=== PATIENT | male | born 1930 | race Hispanic/Latino ===

== ENCOUNTER 2017-03-22 19:49 | Emergency (ER) | payer MEDICARE, MEDICAID ==
[2017-03-22 19:57] VITALS: BP 158/79; PULSE 93; RESP 16; TEMP 98.5; O2SAT 94
--- NOTE | 2017-03-22 20:31 | ED PDOC ---
Arrival/HPI <Jamarcus Guzman - Last Filed: 03/22/17 20:53> - General Historian: Patient, Other (daughter ) <Nakia Blanchard - Last Filed: 03/23/17 19:25> - General Chief Complaint: Upper Extremity Problem/Injury Time Seen by Provider: 03/22/17 20:18 - History of Present Illness Narrative History of Present Illness (Text): 03/22/17 20:28 Patient is an 86 year old with pmh of OA, right hip replacement, right carpal tunnel syndrome presenting with right elbow ecchymosis and swelling. As per patient's daughter patient had kenalog and lidocaine injections 10 days ago at the wrist. Then yesterday patient noticed the ecchymosis and edema around the elbow. Patient called PMD and was told to come to the emergency department for evaluation. patient denies pain, denies numbness or tingling sensation, denies weakness, denies fever or chills. Patient denies any anticoagulation use. 03/22/17 20:44 (Nakia Blanchard) Past Medical History - Provider Review Nursing Documentation Reviewed: Yes - Travel History Have you recently traveled outside [place] w/in the past 3 mons?: No - Past History Past History: No Previous - Infectious Disease Hx of Infectious Diseases: None - Tetanus Immunization Tetanus Immunization: Unknown - Cardiac Hx Cardiac Disorders: No - Pulmonary Hx Respiratory Disorders: No - Neurological Hx Neurological Disorder: No - HEENT Hx HEENT Disorder: No - Renal Hx Renal Disorder: No - Endocrine/Metabolic Hx Endocrine Disorders: No - Hematological/Oncological Hx Blood Disorders: No - Integumentary Hx Dermatological Disorder: No - Musculoskeletal/Rheumatological Hx Arthritis: Yes Other/Comment: CARPAL TUNNEL - Gastrointestinal Hx Gastrointestinal Disorders: No - Genitourinary/Gynecological Hx Prostate Problems: Yes - Psychiatric Hx Psychophysiologic Disorder: No Hx Substance Use: No - Surgical History Other/Comment: PROSTATE <Nakia Blanchard - Last Filed: 03/23/17 19:25> Family/Social History - Physician Review Nursing Documentation Reviewed: Yes Family/Social History: No Known Family HX Smoking Status: Never Smoked Hx Alcohol Use: Yes Frequency of alcohol use: Socially Hx Substance Use: No <Nakia Blanchard - Last Filed: 03/23/17 19:25> Allergies/Home Meds <Jamarcus Guzman - Last Filed: 03/22/17 20:53> <Nakia Blanchard - Last Filed: 03/23/17 19:25> Allergies/Adverse Reactions: Allergies No Known Allergies Allergy (Verified 03/22/17 19:50) Home Medications: Home Meds Medication Instructions Recorded Confirmed Oxybutynin [Ditropan Tab] 1 tab PO DAILY 03/22/17 03/22/17 Review of Systems - Review of Systems Constitutional: Normal Eyes: Normal ENT: Normal Respiratory: Normal Cardiovascular: Normal Gastrointestinal: Normal Genitourinary Male: Normal Musculoskeletal: Normal Skin: Other (ecchymosis on the right elbow.) Neurological: Normal Endocrine: Normal Hemo/Lymphatic: Normal Psychiatric: Normal <Nakia Blanchard - Last Filed: 03/23/17 19:25> Physical Exam Vital Signs Reviewed: Yes Temperature: Afebrile Blood Pressure: Normal Pulse: Regular Respiratory Rate: Normal Appearance: Positive for: Well-Appearing, Non-Toxic, Comfortable Pain Distress: None Mental Status: Positive for: Alert and Oriented X 3 - Systems Exam Head: Present: Atraumatic, Normocephalic Pupils: Present: PERRL Extroacular Muscles: Present: EOMI Conjunctiva: Present: Normal Mouth: Present: Moist Mucous Membranes Neck: Present: Normal Range of Motion Respiratory/Chest: Present: Clear to Auscultation, Good Air Exchange. No: Respiratory Distress, Accessory Muscle Use Cardiovascular: Present: Regular Rate and Rhythm, Normal S1, S2. No: Murmurs Abdomen: Present: Normal Bowel Sounds. No: Tenderness, Distention Upper Extremity: Present: Normal Inspection, Normal ROM, NORMAL PULSES, Swelling (+ soft tissue edema of the right elbow.), Other (+ ecchymosis, + lipoma ). No: Cyanosis, Edema, Tenderness Lower Extremity: Present: Normal Inspection. No: Edema Neurological: Present: GCS=15 Skin: Present: Warm, Dry, Other (ecchymosis and soft tissue edema of the right elbow. ) Psychiatric: Present: Alert, Oriented x 3, Normal Insight, Normal Concentration <Nakia Blanchard - Last Filed: 03/23/17 19:25> Vital Signs Temp Pulse Resp BP Pulse Ox 03/22/17 19:52 98.5 F 93 H 16 158/79 H 94 L Medical Decision Making <Jamarcus Guzman - Last Filed: 03/22/17 20:53> <Nakia Blanchard - Last Filed: 03/23/17 19:25> ED Course and Treatment: 03/22/17 20:53 Pt. seen and evaluated with medical scheduler.Concur with clinical findings,plan , and management. (Jamarcus Guzman) 03/22/17 20:34 Patient is an 86 year old with pmh of OA, right hip replacement, right carpal tunnel syndrome presenting with right elbow ecchymosis and swelling. Likely ecchymosis and soft tissue edema 2nd to the injected kenalog leaking to the elbow. No pain, +2 radial pulse on the right. No paresthesias. No h/o anticoags. Spoke to Dr Angeles about the patient, ok to discharge patient to follow up in the office tomorrow or next week. 03/22/17 20:37 03/22/17 20:49 (Nakia Blanchard) - PA / DIRECTOR DISTRIBUTION / Resident Statement DMITRY has reviewed & agrees with the documentation as recorded. / has examined the patient and agrees with the treatment plan. <Jamarcus Guzman - Last Filed: 03/22/17 20:53> Disposition/Present on Arrival <Jamarcus Guzman - Last Filed: 03/22/17 20:53> - Present on Arrival Any Indicators Present on Arrival: No History of DVT/PE: No History of Uncontrolled Diabetes: No Urinary Catheter: No History of Decub. Ulcer: No History Surgical Site Infection Following: None - Disposition Have Diagnosis and Disposition been Completed?: Yes Disposition Time: 20:40 Patient Plan: Discharge <Nakia Blanchard - Last Filed: 03/23/17 19:25> - Disposition Diagnosis: Contusion Diagnosis: (Ruled Out): Ecchymosis of forearm, Edema at injection site Disposition: HOME/ ROUTINE Condition: GOOD Additional Instructions: Please follow up with PMD tomorrow or next week. Go to the nearest emergency room if you experience chest pain, bleeding, fever weakness or pain around the arm. Referrals: Paulo Angeles MD [Primary Care Provider] - Follow up with primary
== END 2017-03-22 20:50 | disposition home or self-care (01) ==
LOC: ED 19:49
DX: S50.01XA Contusion of right elbow, initial encounter (principal); X58.XXXA Exposure to other specified factors, initial encounter; M19.90 Unspecified osteoarthritis, unspecified site